=== PATIENT | female | born 1980 | race African-American/Black ===

== ENCOUNTER 2023-12-14 11:50 | Emergency (ER) | payer OTHER ==
[~2023-12-14] VITALS: Ht 167.6 cm; Wt 91.0 kg
[2023-12-14 12:00] VITALS: O2SAT 100
[2023-12-14] MEDS ORDERED: METH-653 MT (12:27)
[2023-12-14 12:30] VITALS: BP 135/85; PULSE 87; TEMP 98
[2023-12-14 12:42] VITALS: RESP 17
[2023-12-14] MEDS: KETOROLAC 60MG/2ML VIAL IM ONE (12:42)
== END 2023-12-14 12:56 | disposition home or self-care (01) ==
LOC: ER 12:12
DX: M54.9 Dorsalgia, unspecified (principal); F12.90 Cannabis use, unspecified, uncomplicated; G51.0 Bell's palsy; Z98.890 Other specified postprocedural states
CPT/HCPCS: 96372; 99283; J1885; Z7610 ×2

== ENCOUNTER 2024-10-25 04:45 | Emergency (ER) | payer MEDICAID, OTHER ==
[~2024-10-25] VITALS: Ht 167.6 cm; Wt 82.0 kg
[~2024-10-25 04:45] MED LIST: METH-653 MT
[2024-10-25 04:47] VITALS: O2SAT 99
[2024-10-25] MEDS: MECLIZINE 25MG TABLET PO ONE (06:16)
[2024-10-25] MEDS ORDERED: MECL-299 MT (06:22)
[2024-10-25 06:29] VITALS: BP 122/73; PULSE 68; RESP 20; TEMP 36.6; O2SAT 99
== END 2024-10-25 06:30 | disposition home or self-care (01) ==
LOC: ER 04:45
DX: H81.10 Benign paroxysmal vertigo, unspecified ear (principal); F10.90 Alcohol use, unspecified, uncomplicated; F12.90 Cannabis use, unspecified, uncomplicated; Z98.890 Other specified postprocedural states; Y90.9 Presence of alcohol in blood, level not specified
CPT/HCPCS: 99283; J8597